=== PATIENT | female | born 1980 | race Caucasian/White ===

== ENCOUNTER 2023-01-29 01:02 | Emergency (ER) | payer MEDICAID, SELFPAY ==
[2023-01-29] VITALS (15 sets, daily range): BP systolic 105–144; BP diastolic 75–127; PULSE 84–102; RESP 12–30; TEMP 36.6; O2SAT 97–100
--- NOTE | ~2023-01-29 | XR_ITS ---
EXAMINATION: XR hip RT 2V w AP pelvis INDICATION: Right hip pain TECHNIQUE: AP view the pelvis and two views of the right hip are obtained. COMPARISON: None available FINDINGS: Bone alignment is normal. There is no fracture. There are phleboliths of the pelvis. IMPRESSION: 1. No acute osseous abnormality. Reviewed, dictated and finalized at location F. IR MANAGER
[2023-01-29] MEDS: diazePAM INJ (*CRX) 10 MG/2 ML SYRINGE 5 MG IV PUSH (01:13)
[2023-01-29] MEDS: MORPHINE SULFATE (*CRX) 4 MG/ML INJ IV PUSH (01:13)
[2023-01-29] MEDS: ONDANSETRON INJ 4 MG/2 ML VIAL IV PUSH (01:13)
[2023-01-29 01:32] LABS: Basophils Percent Auto 0.7 % (0.2-1.2); Eosinophils Absolute Auto 0.1 K/mm3 (0-0.3); Eosinophils Percent Auto 1.2 % (0-4.4); Hematocrit 38.2 % (37.0-47.0); Immature Granulocyte Absolute 0.02 K/mm3 (0.00-0.031); Immature Granulocyte Percent A 0.3 % (0-0.5); Lymphocytes Absolute Auto 2.55 K/mm3 (0.9-3.2); Lymphocytes Percent Auto 42.5 % (18.3-44.2); Mean Corpuscular Hemoglobin 30.3 pg (26-34); Mean Platelet Volume 10.7 fl (7.4-10.4); Monocytes Absolute Auto 0.7 K/mm3 (0.1-0.6); Monocytes Percent Auto 10.8 % (2.6-8.5); Neutrophils Absolute Auto 2.7 K/mm3 (1.3-6.7); Neutrophils Percent Auto 44.5 % (45.5-73.1); Platelet Count Result 252 k/mm3 (150-375); Red Blood Count 4.29 M/mm3 (4.2-5.4); Red Cell Distribution Width 12.8 % (11.5-14.5)
[2023-01-29 01:50] LABS: Alanine Aminotransferase 32 U/L (6-35); Albumin Level 4.3 g/dL (3.5-5.1); Alkaline Phosphatase 51 U/L (38-126); Anion Gap 8 mmol/L (8-16); Aspartate Amino Transferase 36 U/L (14-36); Bilirubin,Total 0.5 mg/dL (0.2-1.3); Blood Urea Nitrogen 5 mg/dL (7-17); CRP < 0.5 mg/dL (<1.0); Calcium 9.2 mg/dL (8.4-10.2); Carbon Dioxide 23 mmol/L (22-30); Chloride 106 mmol/L (98-107); Estimated CRCL calculation 105 ml/min; Estimated Glomerular Filt Rate > 60; Glucose 93 mg/dL (65-110); Potassium 3.1 mmol/L (3.4-5.0); Sodium 137 mmol/L (137-145)
--- NOTE | 2023-01-29 01:51 | ED.GENADULT ---
HPI - General Adult General Chief complaint: Unspecified Stated complaint: Leg pain Time Seen by Provider: 01/29/23 01:47 CDT History of Present Illness HPI narrative: Patient is a 42-year-old female here with right buttock pain and leg pain. She states that it began about an hour prior to arrival. She states that the pain begins in her right buttock and radiates down her right leg. She states the pain is severe and worse with movement. She believes that her buttock on her right side is more swollen than the 1 on the left side. She denies any fever chills. She does note that she is feeling lightheaded on the way to the hospital and believe she may pass out. She denies any chest pain or shortness of breath. No prior history of PE or DVT. She does note history of prior pinched nerve somewhere within her back, unsure of where it was located. She denies any bowel or bladder incontinence, denies saddle anesthesia. She denies IV drug use history. No trauma. Related Data Allergies Allergy/AdvReac Type Severity Reaction Status Date / Time loratadine [From Claritin-D] AdvReac Palpitation Verified 01/29/23 01:12 TAX ASSESSOR s pseudoephedrine AdvReac Palpitation Verified 01/29/23 01:12 TAX ASSESSOR [From Claritin-D] s Review of Systems Review of Systems: All systems reviewed & are unremarkable except as noted in HPI and below Exam Narrative: GENERAL: Well-appearing, well-nourished, and appears to be in pain, curled up in the position. HEAD: Normocephalic, atraumatic. EYES: PERRLA and EOMI. ENT: Nares clear. Mucous membranes moist. NECK: Supple. CHEST: Clear to auscultation. No respiratory distress. HEART: Regular rate and rhythm. Normal peripheral pulses. ABDOMEN: Soft, nontender, nondistended. EXTREMITIES: Decreased ROM of right hip due to pain, + straight leg sign in right leg. No sensory or strength deficits in bilateral lower extremities. No lower pedal edema present. Tenderness over the right gluteus, no overlying skin changes or erythema to suggest infection. SKIN: Warm, dry, no rash. NEURO: No focal deficits. Alert and oriented x3. PSYCH: Normal mood and affect. Course Course Emergency Course: Chart review performed. Patient here with right leg pain. Triage labs grossly normal, mild tachycardia of 100. No prior visits in our system. Patient seen evaluated, appears to be in pain. Concern for possible lumbar radiculopathy given straight leg sign and pain beginning gluteus extending down through the leg. Will do x-rays of hip as well as lab work, inflammatory labs, UA. Morphine, Zofran, Valium ordered for pain. Will reassess. Given the fact that she did have a near syncopal episode will do EKG and troponin. Normal CBC, potassium low at 3.1, will replete. Chemistry otherwise within normal limits. Troponin negative, CRP negative, ESR normal. X-ray reviewed by myself, no fracture noted. Patient re-evaluated, has had some significant pain relief. Will give her short course of pain medication for home and advise close follow-up with her primary care doctor. The results of pertinent diagnostic studies and exam findings were discussed. The patient?s provisional diagnosis and plan of care were discussed with the patient and present family. The patient and/or present family expressed understanding of the diagnosis and plan. The nurse was instructed to provide written instructions and appropriate follow-up information. The patient understands their need and responsibility to obtain additional follow-up as instructed. The risks of medications administered and prescribed were discussed with the patient and family present. Vital Signs Vital signs: Vital Signs Temperature 97.9 F 01/29/23 01:06 CDT Pulse Rate 100 01/29/23 01:06 CDT Respiratory Rate 14 01/29/23 01:06 CDT Blood Pressure 120/90 01/29/23 01:06 CDT Pulse Oximetry 100 01/29/23 01:06 CDT Oxygen Delivery Room Air 01/29/23 01:06 CDT
--- NOTE | 2023-01-29 01:57 | ECG_ITS ---
Measurements Intervals [place] Rate: 95 P: 76 KS: 150 QRS: 60 QRSD: 92 T: 60 QT: 364 QTc: 459 Interpretive Statements SINUS RHYTHM POSSIBLE RIGHT ATRIAL ENLARGEMENT POSSIBLE LEFT ATRIAL ENLARGEMENT BASELINE ARTIFACT- I, II, III, AVR, AVL, AVF, V1-V6 BORDERLINE ECG NO PREVIOUS ECG AVAILABLE FOR COMPARISON Electronically Signed On 01-29-2023 6:51:24 CABANA ATTENDANT by dJ Carrillo D.O.
[2023-01-29 01:59] LABS: Troponin I < 0.012 ng/mL (0.000-0.034)
[2023-01-29 02:09] LABS: Erythrocyte Sedimentation Rate 10 mm/hr (0-20)
[2023-01-29 03:05] LABS: Appearance Urine Clear (Clear); Bilirubin Urine Negative (Negative); Blood Urine Negative (Negative); Color Urine Yellow (Yellow); Glucose Urine UA Negative (Negative); Ketones Urine Negative (Negative); Leukocyte Esterase Ur Negative LEU/UL (Negative); Nitrate Urine Negative (Negative); Protein Urine Negative (Negative); Specific Grav Ur 1.003 (1.001-1.035)
[2023-01-29] MEDS: SODIUM CHLORIDE 0.9% IV 1,000 ML 999 ML IV CONT (03:15)
[2023-01-29] MEDS: HYDROmorphone HCL INJ (*CRX) 1 MG/ML SYR 2 MG IV PUSH (03:17)
[2023-01-29] MEDS: POTASSIUM BICARBONATE 25 MEQ TABEF 50 MEQ PO (03:35)
[2023-01-29 03:47] LABS: Add Urine Microscopic? NO
== END 2023-01-29 06:53 | disposition home or self-care (01) ==
PROVIDERS: Emergency Provider Student in an Organized Health Care Education/Training Program
DX: M25.551 Pain in right hip (principal); M54.16 Radiculopathy, lumbar region
CPT/HCPCS: 36415; 73502; 80053; 81003; 81025; 84484; 85025; 85652; 86140; 93005; 96361; 96374; 96375; 99284; A9270; J1170; J7030